=== PATIENT | male | born 1990 | race Caucasian/White ===

== ENCOUNTER 2016-10-30 19:41 | Emergency (ER) | payer OTHER ==
[~2016-10-30] VITALS: Ht 170.2 cm; Wt 70.2 kg
[~2016-10-30 19:41] MED LIST: ONDA4TAB10 PO
--- NOTE | 2016-10-30 19:54 | ED.ADGEN ---
Past History Past Medical History: No Pertinent History Past Surgical History: No Surgical History Alcohol Use: Rarely Drug Use: None Adult General Chief Complaint Chief Complaint ".. I got bit by my friends dog..."..." I just attacked me....".." It had already bitten him..." HPI HPI Patient is a 26 year old male who presents with hx of dog bite to Rt. forearm. Pt. has crush injury and puncture teeth haney to Rt. forearm. Patient is right-hand dominant. Distal neurovascular intact. Patient up-to-date with vaccinations. No recent travel. No ill contacts. Patient gets his care at [facility]. The dog is a Turkish Gresham type mix rescue dog reportedly has had his vaccinations. Reportedly this is a new dog to the family of Guilherme. Reportedly this was an unprovoked attack. Review of Systems Review of Systems Constitutional: Denies fever or chills [] Eyes: Denies change in visual acuity, redness, or eye pain [] HENT: Denies nasal congestion or sore throat [] Respiratory: Denies cough or shortness of breath [] Cardiovascular: No additional information not addressed in HPI [] GI: Denies abdominal pain, nausea, vomiting, bloody stools or diarrhea [] : Denies dysuria or hematuria [] Musculoskeletal: Denies back pain or joint pain [] complaints of right forearm dog bite Integument: Denies rash or skin lesions [] Neurologic: Denies headache, focal weakness or sensory changes [] Endocrine: Denies polyuria or polydipsia [] Family History Family History Noncontributory Current Medications Current Medications Current Medications Medications (Trade) Dose Ordered Sig/Maco Start Time Stop Time Status Last Admin Dose Admin Ceftriaxone Sodium (Rocephin Im) 1 gm 1X ONCE 10/30/16 20:30 10/30/16 20:31 DC 10/30/16 20:30 1 GM Hydrocodone Bitartrate/ Ibuprofen (Vicoprofen 7.5-200) 2 tab 1X ONCE 10/30/16 20:30 10/30/16 20:31 DC 10/30/16 20:30 2 TAB Rabies Immune Globulin (Imogam Rabies) 9.36 ml ONCE ONCE 10/30/16 21:45 10/30/16 21:46 DC 10/30/16 21:40 9.36 ML Rabies Vaccine Human Diploid Cell (Imovax Rabies 2.5 Unit / ml) 1 ml ONCE ONCE 10/30/16 21:45 10/30/16 21:46 DC 10/30/16 21:36 1 ML See nursing for home medications Allergies Allergies Allergies Coded Allergies Type Severity Reaction Last Updated Verified No Known Drug Allergies 03/09/16 No Physical Exam Physical Exam Constitutional: Well developed, well nourished, moderate distress, non-toxic appearance. [] HENT: Normocephalic, atraumatic, bilateral external ears normal, oropharynx moist, no oral exudates, nose normal. [] Eyes: PERRLA, EOMI, conjunctiva normal, no discharge. [] Neck: Normal range of motion, no tenderness, supple, no stridor. [] Cardiovascular:Heart rate regular rhythm, no murmur [] Lungs & Thorax: Bilateral breath sounds clear to auscultation [] Abdomen: Bowel sounds normal, soft, no tenderness, no masses, no pulsatile masses. [] Skin: Warm, dry, no erythema, no rash. [] Back: No tenderness, no CVA tenderness. [] Extremities: Right forearm dog bite and tenderness, no cyanosis, no clubbing, ROM intact, right forearm edema. [] Neurologic: Alert and oriented X 3, normal motor function, normal sensory function, no focal deficits noted. [] Psychologic: Affect normal, judgement normal, mood normal. [] Current Patient Data Vital Signs Vital Signs Date Time Temp Pulse Resp B/P Pulse Ox O2 Delivery O2 Flow Rate FiO2 10/30/16 22:02 65 16 118/78 98 Room Air 10/30/16 19:41 98.4 EKG EKG [] Radiology/Procedures Radiology/Procedures I interpretation right forearm film shows no fracture or dislocation. Does have findings of edema and soft tissue deficits. No findings of foreign body or teeth [] Course & Med Decision Making Course & Med Decision Making Pertinent Labs and Imaging studies reviewed. (See chart for details). Keep wound clean and dry. Apply Polysporin 4 times a day. Take Augmentin 875 twice a day for 10 days. Take Tylenol and ibuprofen for pain. May take Vicoprofen up 4 times a day for marked pain. The dog should be confined. May need follow-up rabies vaccinations. The risk for rabies is lower as the animal involved was a domestic animal and likely vaccinated. Nonetheless, I recommend confirming vaccination status and 10 day quarantine of the involved animal. Vaccination. Follow-up primary care. [] Final Impression Final Impression 1. Dog bite[] Problems: Dragon Disclaimer Dragon Disclaimer This electronic medical record was generated, in whole or in part, using a voice recognition dictation system. TRINH BETTENCOURT MD Oct 30, 2016 19:54
[2016-10-30] MEDS ORDERED: RABIES IMMUNE GLOBULIN PF 300 UNIT/2 ML VIAL. VAX IM ONE (20:00)
[2016-10-30] MEDS ORDERED: HYDR-79 PO (20:05)
[2016-10-30] MEDS ORDERED: AMOX1TAB61 PO (20:05)
[2016-10-30] MEDS ORDERED: HYDROCODON/IBUPROFEN 7.5/200MG TABLET. PO ONE (20:30)
[2016-10-30] MEDS ORDERED: CEFTRIAXONE IM 1 GM VIAL. IM ONE (20:30)
[2016-10-30] MEDS ORDERED: RABIES VIRUS VACC PF 2.5 UNIT / 1 ML VIAL. VAX IM ONE (21:45)
[2016-10-30] MEDS ORDERED: RABIES IMMUNE GLOBULIN PF 150 UNIT/ML 10ML VIAL. VAX IM ONE (21:45)
[2016-10-30 22:02] VITALS: BP 118/78
--- NOTE | 2016-10-31 07:41 | RAD ---
Right forearm radiographs History: Dog bite to forearm. Comparison: None. Findings: AP and lateral views of the right forearm. No acute fracture or acute malalignment is identified. No radiopaque foreign body is seen. Focus of soft tissue gas is seen involving the mid right forearm, compatible with provided history of laceration Impression: Laceration. No acute osseous traumatic injury identified.
== END 2016-10-30 22:10 | disposition home or self-care (01) ==
LOC: ER 19:41
DX: S51.851A Open bite of right forearm, initial encounter (principal); W54.0XXA Bitten by dog, initial encounter; Y93.89 Activity, other specified; Y99.8 Other external cause status; Y92.89 Other specified places as the place of occurrence of the external cause
CPT/HCPCS: 73090; 90376; 90471; 90472; 90675; 96372; 99284; J0696

== ENCOUNTER 2016-12-17 20:12 | Emergency (ER) | payer OTHER ==
[~2016-12-17] VITALS: Ht 170.2 cm; Wt 70.2 kg
[~2016-12-17 20:12] MED LIST changes: +AMOX1TAB61 PO; +HYDR-79 PO
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
[2016-12-17 20:24] VITALS: BP 144/85
[2016-12-17] MEDS ORDERED: MORPHINE SULFATE 4 MG/ML DISP.SYRIN. IM ONE (20:45)
[2016-12-17] MEDS ORDERED: IOHEXOL 300 MG/ML 75 ML VIAL. IV ONE (21:30)
[2016-12-17] MEDS ORDERED: CONTRAST GIVEN MC PRN (21:30)
[2016-12-17] MEDS ORDERED: IV NORMAL SALINE 1,000ML 1,000 ML IV ONE (21:45)
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
[2016-12-17] MEDS ORDERED: oxyCODONE/APAP 5/325 1 TAB TABLET PO ONE (22:15)
[2016-12-17 22:19] LABS: HEMOGLOBIN ISTAT 15.3 gm/dL; POTASSIUM ISTAT 3.8 mmol/L (3.5-5.0)
[2016-12-17 22:39] LABS: BASO % 0 % (0-3); EOS # 0.3 x10^3/uL (0.0-0.7); EOS % 5 % (0-3); HEMATOCRIT 44.6 % (39.0-53.0); HEMOGLOBIN 15.6 g/dL (13.0-17.5); LYMPH # 1.8 x10^3/uL (1.0-4.8); LYMPH % 28 % (24-48); MEAN CORPUSCULAR HEMOGLOBIN 33 pg (25-35); MEAN CORPUSCULAR HGB CONC 35 g/dL (31-37); MEAN CORPUSCULAR VOLUME 94 fL (79-100); MONO # 0.8 x10^3/uL (0.0-1.1); MONO % 12 % (0-9); NEUT # 3.5 x10^3uL (1.8-7.7); NEUT % 55 % (31-73); PLATELET COUNT 239 x10^3/uL (140-400); RED BLOOD COUNT 4.74 x10^6/uL (4.30-5.70); WHITE BLOOD COUNT 6.3 x10^3/uL (4.0-11.0)
[2016-12-17] MEDS ORDERED: OXYC-323 PO (22:48)
[2016-12-17 22:51] LABS: ALBUMIN 3.8 g/dL (3.4-5.0); ALBUMIN/GLOBULIN RATIO 1.1 (1.0-1.7); CALCIUM 8.6 mg/dL (8.5-10.1); POTASSIUM 3.7 mmol/L (3.5-5.1); TOTAL BILIRUBIN 0.6 mg/dL (0.2-1.0); TOTAL PROTEIN 7.3 g/dL (6.4-8.2)
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
== END 2016-12-17 22:55 | disposition home or self-care (01) ==
LOC: ER 20:12
DX: S80.211A Abrasion, right knee, initial encounter (principal); M25.551 Pain in right hip; M54.5 Low back pain; V86.59XA Driver of other special all-terrain or other off-road motor vehicle injured in nontraffic accident, initial encounter; Y93.I9 Activity, other involving external motion; Y92.410 Unspecified street and highway as the place of occurrence of the external cause; Y99.8 Other external cause status
CPT/HCPCS: 36415; 72100; 72131; 73502; 73564; 74177; 80047; 80053; 83690; 85027; 96360; 96372; 99285; J2270; Q9967; J7030